=== PATIENT | male | born 1965 | race Two or more races ===

== ENCOUNTER 2017-08-16 23:48 | Emergency (ER) | payer BC, OTHER ==
[2017-08-16] MEDS ORDERED: NS 0.9% 1000 ML* 2,000 ML IV ONE (23:58)
[2017-08-17 01:17] LABS: EGFR Non-African American 75.1 (>60)
[2017-08-17] MEDS ORDERED: Potassium Chlor TAB* 20 MEQ TAB.ER PO ONE ×3 (01:23→02:22)
[2017-08-17 01:56] LABS: ABS Basophils 0.1 10^3/ul (0-0.2); ABS Eosinophils 0.1 10^3/ul (0-0.6); ABS Lymphocytes 1.6 10^3/ul (1.0-4.8); ABS Monocytes 0.9 10^3/ul (0-0.8); ABS Neutrophils 7.3 10^3/ul (1.5-7.7); ABS Nucleated RBC 0 10^3/ul; Eosinophil % 1.1 % (0-6); Hematocrit 45 % (42-52); Hemoglobin 15.7 g/dl (14.0-18.0); Lymphocyte % 16.3 % (25-47); Mean Corpuscular HGB Conc 35 g/dl (31-36); Mean Corpuscular Hemoglobin 37 pg (27-31); Mean Corpuscular Volume 106 fL (80-94); Mean Platelet Volume 9 um3 (7.4-10.4); Nucleated Red Blood Cells % 0.2; Platelet Count 203 10^3/ul (150-450); Red Blood Count 4.24 10^6/ul (4.0-5.4); Red Cell Distribution Width 14 % (10.5-15)
[2017-08-17 02:00] LABS: INR 0.95 (0.77-1.02)
[2017-08-17 04:36] VITALS: BP 118/73
--- NOTE | 2017-08-17 06:37 | ED ---
Torey Muñoz Thomas, scribed for Darren Degroot on 08/17/17 at 0001 . Complex/Multi-Sys Presentation - HPI Summary HPI Summary: The patient is a 51 year old male brought in by ambulance after he was drinking at the bar and fell, possibly hitting his head. Per EMS, after this fall the patient was unresponsive and had agonal breathing. In the emergency room, the patient is alert and confused. The patient admits to drinking alcohol tonight. When asked what happened at the bar, the patient does not remember. He denies chest pain, head pain, neck pain, abdominal pain, any other pain, or extremity weakness. - History Of Current Complaint Hx Obtained From: Patient, EMS Onset/Duration: Resolved Timing: Intermittent, Lasting: Severity Currently: None Severity Initially: Moderate Alleviating Factor(s): Spontaneous resolution Associated Signs And Symptoms: Negative: Other - CP, head pain, abd pain, neck pain, extremity weakness - Allergies/Home Medications Allergies/Adverse Reactions: Allergies Allergy/AdvReac Type Severity Reaction Status Date / Time No Known Allergies Allergy Verified 08/17/17 00:04 PMH/Surg Hx/FS Hx/Imm Hx Endocrine/Hematology History: Denies: Hx Diabetes Cardiovascular History: Denies: Hx Congenital Heart Disease - Family History Known Family History: Positive: Other - Patient denies relevant FHx - Social History Alcohol Use: Daily Hx Substance Use: No Substance Use Type: Reports: None Hx Tobacco Use: No Smoking Status (MU): Never Smoked Tobacco Review of Systems Negative: Chest Pain Negative: Abdominal Pain Negative: Other - neck pain Neurological: Negative - head pain Negative: Weakness - extremity All Other Systems Reviewed And Are Negative: Yes Physical Exam - Summary Physical Exam Summary: Appearance: Well appearing, no pain distress Skin: warm, dry, reflects adequate perfusion Head/face: normal Eyes: EOMI, MICKI ENT: normal Neck: supple, non-tender Respiratory: CTA, breath sounds present Cardiovascular: Tachycardia. Regular rhythm. Pulses symmetrical Abdomen: non-tender, soft Bowel: present Musculoskeletal: normal, strength/ROM intact Neuro: sensory motor intact. Alert but confused. Triage Information Reviewed: Yes Vital Signs On Initial Exam: Initial Vitals Temp Pulse Resp BP Pulse Ox 97.8 F 75 16 114/60 96 08/16/17 23:59 08/16/17 23:59 08/16/17 23:59 08/16/17 23:59 08/16/17 23:59 Vital Signs Reviewed: Yes Diagnostics - Vital Signs Vital Signs Temp Pulse Resp BP Pulse Ox 08/17/17 05:58 61 16 118/73 96 08/17/17 04:36 67 18 118/73 96 08/17/17 03:07 16 104/61 95 08/17/17 01:00 71 16 114/60 96 08/16/17 23:59 97.8 F 75 16 114/60 96 - Laboratory Lab Results: Lab Results 08/17/17 08/17/17 08/17/17 Range/Units 00:30 00:30 00:30 WBC 10.0 (3.5-10.8) 10^3/ul RBC 4.24 (4.0-5.4) 10^6/ul Hgb 15.7 (14.0-18.0) g/dl Hct 45 (42-52) % MCV 106 H (80-94) fL MCH 37 H (27-31) pg MCHC 35 (31-36) g/dl RDW 14 (10.5-15) % Plt Count 203 (150-450) 10^3/ul MPV 9 (7.4-10.4) um3 Neut % (Auto) 73.2 (38-83) % Lymph % (Auto) 16.3 L (25-47) % Stonewall % (Auto) 8.7 (1-9) % Eos % (Auto) 1.1 (0-6) % Baso % (Auto) 0.7 (0-2) % Absolute Neuts (auto) 7.3 (1.5-7.7) 10^3/ul Absolute Lymphs (auto) 1.6 (1.0-4.8) 10^3/ul Absolute Monos (auto) 0.9 H (0-0.8) 10^3/ul Absolute Eos (auto) 0.1 (0-0.6) 10^3/ul Absolute Basos (auto) 0.1 (0-0.2) 10^3/ul Absolute Nucleated RBC 0 10^3/ul Nucleated RBC % 0.2 Polychromasia 1+ Macrocytosis 1+ INR (Anticoag Therapy) 0.95 (0.77-1.02) APTT 34.8 (26.0-36.3) seconds Sodium 134 (133-145) mmol/L Potassium 2.7 L* (3.5-5.0) mmol/L Chloride 94 L (101-111) mmol/L Carbon Dioxide 28 (22-32) mmol/L Anion Gap 12 H (2-11) mmol/L BUN 7 (6-24) mg/dL Creatinine 1.05 (0.67-1.17) mg/dL Est GFR ( Amer) 96.5 (>60) Est GFR (Non-Af Amer) 75.1 (>60) BUN/Creatinine Ratio 6.7 L (8-20) Glucose 103 H (70-100) mg/dL Calcium 8.3 L (8.6-10.3) mg/dL Total Bilirubin 0.70 (0.2-1.0) mg/dL AST 124 H (13-39) U/L ALT 99 H (7-52) U/L Alkaline Phosphatase 67 (34-104) U/L Troponin I 0.01 (<0.04) ng/mL Total Protein 7.1 (6.4-8.9) g/dL Albumin 3.3 (3.2-5.2) g/dL Globulin 3.8 (2-4) g/dL Albumin/Globulin Ratio 0.9 L (1-3) Lipase 40 (11.0-82.0) U/L Salicylates < 2.50 (<30) mg/dL Acetaminophen < 15 mcg/mL Serum Alcohol 193 H (<10) mg/dL 08/17/17 Range/Units 05:52 WBC (3.5-10.8) 10^3/ul RBC (4.0-5.4) 10^6/ul Hgb (14.0-18.0) g/dl Hct (42-52) % MCV (80-94) fL MCH (27-31) pg MCHC (31-36) g/dl RDW (10.5-15) % Plt Count (150-450) 10^3/ul MPV (7.4-10.4) um3 Neut % (Auto) (38-83) % Lymph % (Auto) (25-47) % Stonewall % (Auto) (1-9) % Eos % (Auto) (0-6) % Baso % (Auto) (0-2) % Absolute Neuts (auto) (1.5-7.7) 10^3/ul Absolute Lymphs (auto) (1.0-4.8) 10^3/ul Absolute Monos (auto) (0-0.8) 10^3/ul Absolute Eos (auto) (0-0.6) 10^3/ul Absolute Basos (auto) (0-0.2) 10^3/ul Absolute Nucleated RBC 10^3/ul Nucleated RBC % Polychromasia Macrocytosis INR (Anticoag Therapy) (0.77-1.02) APTT (26.0-36.3) seconds Sodium (133-145) mmol/L Potassium 3.8 (3.5-5.0) mmol/L Chloride (101-111) mmol/L Carbon Dioxide (22-32) mmol/L Anion Gap (2-11) mmol/L BUN (6-24) mg/dL Creatinine (0.67-1.17) mg/dL Est GFR ( Amer) (>60) Est GFR (Non-Af Amer) (>60) BUN/Creatinine Ratio (8-20) Glucose (70-100) mg/dL Calcium (8.6-10.3) mg/dL Total Bilirubin (0.2-1.0) mg/dL AST (13-39) U/L ALT (7-52) U/L Alkaline Phosphatase (34-104) U/L Troponin I (<0.04) ng/mL Total Protein (6.4-8.9) g/dL Albumin (3.2-5.2) g/dL Globulin (2-4) g/dL Albumin/Globulin Ratio (1-3) Lipase (11.0-82.0) U/L Salicylates (<30) mg/dL Acetaminophen mcg/mL Serum Alcohol (<10) mg/dL Result Diagrams: 08/17/17 00:30 08/17/17 05:52 Lab Statement: Any lab studies that have been ordered have been reviewed, and results considered in the medical decision making process. Re-Evaluation - Re-Evaluation First Eval Re-Evaluation Time: 00:43 Change: Unchanged Comment: The patient refused a CXR and a CT of the head and neck. He is alert and oriented at this time. He knows what he is doing. Complex Multi-Symp Course/Dx Assessment/Plan: The patient is a 51 year old male brought in by ambulance after he was drinking at the bar and fell, possibly hitting his head. In the emergency room, the patient is alert and confused. In the ED course the patient was given IV fluids and potassium chloride. Bloodwork and urinalysis were obtained. EKG was obtained. THE PATIENT REFUSED CXR, CT BRAIN, AND CT C-SPINE. THE PATIENT IS OF SOUND MIND. HE KNOWS AND UNDERSTANDS WHAT HE IS DOING. The patient is diagnosed with hypokalemia and alcohol intoxication. The patient is instructed to follow up with primary care. - Diagnoses Differential Diagnoses/HQI/PQRI: Metabolic Abnormality, Other - alcoholic intox/ head injury Provider Diagnoses: Hypokalemia, Alcohol intoxication Discharge - Discharge Plan Condition: Stable Disposition: HOME Patient Education Materials: Hypokalemia (ED), Alcohol Intoxication (ED) Referrals: [facility]ERR[facility] [Outside] Additional Instructions: Follow up with your primary care physician in three days. If you do not have one , you can call the [facility] physician referral service to find one and make an appointment. Return to the emergency department for any new or worsening symptoms. The documentation as recorded by the Torey calero Thomas accurately reflects the service I personally performed and the decisions made by , Darren Degroot.
== END 2017-08-17 06:56 | disposition home or self-care (01) ==
LOC: ED 23:48
DX: E87.6 Hypokalemia (principal); F10.129 Alcohol abuse with intoxication, unspecified; Y90.6 Blood alcohol level of 120-199 mg/100 ml; R00.0 Tachycardia, unspecified; R41.82 Altered mental status, unspecified
CPT/HCPCS: 36415; 80053; 80320; 80329; 83690; 84132; 84484; 85025; 85610; 85730; 93005; 99283; A9270-GY; G0480

== ENCOUNTER 2019-01-01 19:57 | Emergency (ER) | payer OTHER ==
[2019-01-01] MEDS ORDERED: Pantoprazole IV* 40 MG IV ONE ×2 (20:30→21:25)
[2019-01-01] MEDS ORDERED: Albuterol/Ipratropium NEB.SOL* Albuterol 2.5 MG/Ipratropium 0.5 MG 3 ML INH ONE (20:32)
[2019-01-01] MEDS ORDERED: Iodixanol* (CONTRAST) 320 MG/ML 100 ML SDV IV ONE (20:49)
--- NOTE | 2019-01-01 20:59 | ED ---
Complex/Multi-Sys Presentation - HPI Summary HPI Summary: Patient is a 53 y/o M presenting to ED with complaints of abdominal pain, constipation, and SOB. Patient reports that abdominal pain has been present for the past five days. He states that he has been constipated as well, but notes that he had a bowel movement at 1830 today. He describes this bowel movement as "okay". However, he states he has been SOB since this bowel movement. Nurse notes that patient was 79 on RA upon arrival. When patient was taken off of o2 in the room, he dropped to 80% o2. He denies back pain. Patient takes folic acid , ASA, metoprolol 50 mg, losartan 100 mg, and lasix 20 mg. PMHx of HTN and borderline diabetes. Patient denies any medications for diabetes. He additionally denies Hx of TX and CHF. On triage, pain is rated 8/10. Nothing is noted to aggravate/alleviate Sx. Home medications and allergies are reviewed. - History Of Current Complaint Chief Complaint: EDAbdPain Time Seen by Provider: 01/01/19 20:16 Hx Obtained From: Patient Onset/Duration: Lasting Hours - SOB since 1830 today, Lasting Days - abdominal pain and constipation for past five days, Still Present Timing: Constant, Hours - SOB since 1830 today, Days - abdominal pain and constipation for past five days Severity Currently: Severe Location: Pain At: - abdomen Aggravating Factor(s): nothing Alleviating Factor(s): nothing Associated Signs And Symptoms: Positive: SOB, Abdominal Pain, Other - constipation. Negative: Back Pain - Allergies/Home Medications Allergies/Adverse Reactions: Allergies Allergy/AdvReac Type Severity Reaction Status Date / Time No Known Allergies Allergy Verified 01/01/19 20:07 PMH/Surg Hx/FS Hx/Imm Hx Endocrine/Hematology History: Denies: Hx Diabetes Cardiovascular History: Reports: Hx Hypertension Denies: Hx Congenital Heart Disease Respiratory History: Reports: Hx Asthma - A CHILD Infectious Disease History: No Infectious Disease History: Denies: Traveled Outside the [place] in Last 30 Days - Family History Known Family History: Negative: Respiratory Disease - Social History Alcohol Use: Daily Hx Substance Use: No Substance Use Type: Reports: None Hx Tobacco Use: No Smoking Status (MU): Never Smoked Tobacco Review of Systems Positive: Shortness Of Breath Gastrointestinal: Other - positive - constipation Positive: Abdominal Pain Musculoskeletal: Other - negative - back pain All Other Systems Reviewed And Are Negative: Yes Physical Exam - Summary Physical Exam Summary: VITAL SIGNS: Reviewed. GENERAL: Patient is a well-developed and nourished male who is lying in the stretcher. Patient seems to have mild to moderate respiratory distress HEAD AND FACE: No signs of trauma. No ecchymosis, hematomas or skull depressions. No sinus tenderness. EYES: PERRLA, EOMI x 2, No injected conjunctiva, no nystagmus. EARS: Hearing grossly intact. Ear canals and tympanic membranes are within normal limits. MOUTH: Oropharynx within normal limits. NECK: Supple, trachea is midline, no adenopathy, no JVD, no carotid bruit, no c- spine tenderness, neck with full ROM CHEST: Symmetric, no tenderness at palpation LUNGS: Tachypneic, decreased breath sounds bilaterally. CVS: Regular rate and rhythm, S1 and S2 present, no murmurs or gallops appreciated. ABDOMEN: Soft, no significant tenderness. Abdomen is distended. No rebound no guarding, and no masses palpated. Bowel sounds are hypoactive. EXTREMITIES: FROM in all major joints, no edema, no cyanosis or clubbing. BLE venous stasis. NEURO: Alert and oriented x 3. No acute neurological deficits. Speech is normal and follows commands. SKIN: Dry and warm Triage Information Reviewed: Yes Vital Signs On Initial Exam: Initial Vitals Temp Pulse Resp BP Pulse Ox 97 F 94 20 96/52 82 01/01/19 20:00 01/01/19 20:00 01/01/19 20:00 01/01/19 20:00 01/01/19 20:00 Vital Signs Reviewed: Yes Procedures - Procedure Summary Procedure Summary: Patient was intubated. He was given 20 mg etomidate and 100 mg succinylcholine. He was intubated at 2113 with 8.0 ET tube, 25 cm at the lip. Co2 detector with good color change. No complications. Right jugular central line placed. - Central Line Right Jugular Triple Lumen Central Venous Catheter Central Line Lumen: triple Central Line Procedure: betadine prep, sterile drapes applied, sterile dressing applied Central Line Position: internal jugular (R) Anesthesia: versed and fentanyl Complications: none Central Line Post Position: sutured, good blood return, position confirmed w/ CXR - Intubation Time of Intubation: 21:13 Intubation Method: orotracheal Tube Size (cm): 8.0 Medications: Succinylcholine - and etomidate Breath Sounds after Intubation: equal Intubation Complications: no complications Post Intubation Xray: Yes Diagnostics - Vital Signs Vital Signs Temp Pulse Resp BP Pulse Ox 01/01/19 20:37 99.9 F 01/01/19 20:21 96 41 103/87 92 01/01/19 20:16 94 79 01/01/19 20:00 97 F 94 20 96/52 82 - Laboratory Lab Results: Lab Results 01/01/19 Range/Units 20:47 Patient Temperature Not Reportable ABG pH Pending ABG pH (Temp Correct) Pending ABG pCO2 Pending ABG pCO2 (Temp Corrct Pending ABG pO2 Pending ABG pO2 (Temp Correct Pending ABG HCO3 Pending ABG O2 Saturation Pending ABG Base Excess Pending Respiration Rate Not Reportable O2 Delivery Device oxymask Ventilator Type Not Reportable Vent Mode Not Reportable FiO2 15 Inspiratory Time Not Reportable PEEP Not Reportable Pressure Support Not Reportable Pressure Control Not Reportable EPAP Not Reportable IPAP Not Reportable BiPAP Not Reportable Result Diagrams: 01/01/19 22:07 01/01/19 22:07 Lab Statement: Any lab studies that have been ordered have been reviewed, and results considered in the medical decision making process. - Radiology CXR Radiology Interpretation Completed By: ED Physician Summary of Radiographic Findings: CXR showed decreased lung volume, no acute infiltrate, pending official report. CXR post procedures Radiology Interpretation Completed By: ED Physician Summary of Radiographic Findings: Post procedure CXR: ET tube at level of clavicle and central line in place, no pneumothorax, tip at distal SVC, pending official report. - CT CTA CHEST/ABD/PEL CT Interpretation Completed By: Radiologist Summary of CT Findings: IMPRESSION: 1. There is [id number] intraperitoneal free air as well as loculated air. and fluid collections in the peritoneum of the abdomen and pelvis suspicious. for possible bowel perforation. 2. There are mildly dilated small bowel loops with air-fluid levels, possible. focal ileus versus a degree of small bowel obstruction. 3. No aortic dissection. THIS REPORT WAS REVIEWED BY DR. GALLOWAY. - EKG 2027 Cardiac Rate: NL - rate of 99 BPM EKG Rhythm: Sinus Rhythm Summary of EKG Findings: EKG showed sinus rhythm with rate of 99 BPM, normal axis, normal intervals, no acute changes. Re-Evaluation - Re-Evaluation First Eval Re-Evaluation Time: 21:00 Comment: When patient had returned from CT, patient was diaphoretic and tachpneic, he will be intubated. 2110 - 20 mg etomidate and 100 mg succinylcholine was given, intubated at 2112. Second Eval Re-Evaluation Time: 21:21 Comment: 18 FR OG placed to suction, 700 ml of dark red output. Third Eval Re-Evaluation Time: 21:36 Comment: Bolus of 100 mcg fentanyl and 5 mg versed given for sedation. Central line placed. Fourth Eval Re-Evaluation Time: 22:10 Comment: PRBCS of O- started. Fifth Eval Re-Evaluation Time: 22:20 Comment: Patient's friend, John, is in the room, he will attempt to contact next of kin of patient. Sixth + Eval Re-Evaluation Time: 22:30 Comment: Blood infusion stooped, NS, 3rd liter infusing. Temperature sensing trujillo placed 16 FR, no urine output at this time. Complex Multi-Symp Course/Dx Course Of Treatment: Patient is a 53 y/o M presenting to ED with complaints of abdominal pain, constipation, and SOB. Patient reports that abdominal pain has been present for the past five days. He states that he has been constipated as well, but notes that he had a bowel movement at 1830 today. He describes this bowel movement as "okay". However, he states he has been SOB since this bowel movement. Nurse notes that patient was 79 on RA upon arrival. When patient was taken off of o2 in the room, he dropped to 80% o2. He denies back pain. Patient takes folic acid, ASA, metoprolol 50 mg, losartan 100 mg, and lasix 20 mg. PMHx of HTN and borderline diabetes. Patient denies any medications for diabetes. He additionally denies Hx of TX and CHF. On physical exam, mild to moderate respiratory distress, tachypneic, diaphoretic, decreased breath sounds bilaterally, abdomen is distended, hypoactive bowel sounds, no significant abdominal tenderness, BLE venous stasis. ABG showed pH 7.38, pCO2 37, pO2 67, HCO3 22.6, base excess -2.8. Patient received respiratory therapy; he was given duoneb, 1 neb, and albuterol 2.5 mg INH, one dose. CXR showed decreased lung volume, no acute infiltrate. EKG showed sinus rhythm with rate of 99 BPM, normal axis, normal intervals, no acute changes. 2104 - Dr. Prieto, who is familiar with the patient, called ED, patient's case was discussed. When the patient returned from CT, he was more diaphoretic and tachypneic. As a result, patient was intubated. He was given 20 mg etomidate and 100 mg succinylcholine. He was intubated at 2112 with 8.0 ET tube, 25 cm at the lip. Co2 detector with good color change. No complications. 18 FR OG placed to suction, 700 ml of dark red output. Bolus of 100 mcg fentanyl and 5 mg versed given for sedation. Right jugular triple lumen central venous catheter placed, no complications, sutured, good blood return. Bloodwork obtained from central line. Patient recieved fluids, protonix, and zosyn. Post procedure CXR: ET tube at level of clavicle and central line in place, no pneumothorax, tip at distal SVC. 2141 - Patient's case was discussed with Dr. Gerber, Dr. Gerber asks that labs be obtained for the patient. CTA CHEST/ABD/PEL IMPRESSION: 1. There is mild-to- moderate intraperitoneal free air as well as loculated air. and fluid collections in the peritoneum of the abdomen and pelvis suspicious. for possible bowel perforation. 2. There are mildly dilated small bowel loops with air-fluid levels, possible. focal ileus versus a degree of small bowel obstruction. 3. No aortic dissection. 2206 - Dr. Pfeiffer was contacted about the patient's case, he states to attempt to contact next of kin and he will come to ED to evaluate the patient. PRBCS of O- started. 2219 - Dr. Pfeiffer in ED to evaluate patient. Blood infusion stooped, NS, 3rd liter infusing. Temperature sensing trujillo placed 16 FR, no urine output at this time. Patient has perforated viscous, most likely gastric ulcer. 9 - Dr. Pfeiffer states that after evaluating the patient, the patient should be transferred due to the patient's complicated nature. Transfer will be handled by Dr. Pfeiffer. Labs showed WBC 11.9, MCV 110, MCH 38, immature gran% 49, band neutrophils% 36, metamyelocytes% 9, myelocytes% 4, sodium 127, chloride 88, anion gap 15, BUN 140 , creatinine 7.47, lactic acid 3.1, magnesium 4.5, total bilirubin 2.3, AST 47, trop 0.03, CRP 324.13, albumin 2.6, albumin/globulin ratio 0.7, amylase 26, lipase 86. Serum alc < 10. Blood type A+. 2356 - Dr. Pfeiffer reports that he spoke with Dr. Soheila Rudolph from [facility], Dr. Rudolph accepts patient for transfer to SICU. Patient will be transferred ACLS. Patient is intubated, sedated on fentanyl and versed, and is on levophed. - Diagnoses Provider Diagnoses: Perforated viscus, Respiratory distress, Peritonitis, Sepsis - Physician Notifications Discussed Care Of Patient With: Stephen Prieto Time Discussed With Above Provider: 21:05 Instructed by Provider To: Other - 2104 - Dr. Prieto is familiar with the patient, patient's case was discussed. 2141 - Patient's case was discussed with Dr. Gerber, 2206 - Dr. Pfeiffer was contacted about the patient's case, he states to attempt to contact next of kin and he will come to ED to evaluate the patient. 2010 - Patient's case was discussed with Dr. Jean, Dr. Jean will consult on patient's case 2219 - Dr. Pfeiffer in ED to evaluate patient. 2248 - Dr. Pfeiffer states that after evaluating the patient, he will have the patient transferred. This will be handled by Dr. Pfeiffer. 2355 - Dr. Pfeiffer reports that he spoke with Dr. Soheila Rudolph from [facility], Dr. Rudolph accepts patient for transfer to SICU. Patient will be transferred ACLS. Patient is intubated, sedated on fentanyl and versed, and is on levophed. - Critical Care Time Critical Care Time: 75-104 min Discharge - Sign-Out/Discharge Documenting (check all that apply): Patient Departure - transfer - Discharge Plan Condition: Guarded Disposition: TRANS HIGHER LVL OF CARE FAC Referrals: No Primary Care Phys,NOPCP [Primary Care Provider] - - Billing Disposition and Condition Condition: GUARDED Disposition: Trans Higher Lvl of Care Fac - Attestation Statements Document Initiated by Caroline: Yes Documenting Scribe: MARGARITA FERNANDEZ Provider For Whom Caroline is Documenting (Include Credential): DAMION GALLOWAY MD Scribyvette Attestation: MARGARITA Muñoz, scribed for DAMION GALLOWAY MD on 01/02/19 at 0036. Scribe Documentation Reviewed: Yes Provider Attestation: The documentation as recorded by the MARGARITA calero accurately reflects the service I personally performed and the decisions made by me, DAMION GALLOWAY MD Status of Scribe Document: Viewed
[2019-01-01] MEDS ORDERED: Albuterol 2.5 MG/3 ML NEB.SOL* (0.083%) INH SCH (21:00)
[2019-01-01] MEDS ORDERED: Albuterol 2.5 MG/3 ML NEB.SOL* (0.083%) INH ONE (21:03)
[2019-01-01] MEDS ORDERED: fentaNYL* 50 MCG/ML 2 ML VIAL (100 MCG VIAL) ONE (21:26)
[2019-01-01] MEDS ORDERED: Midazolam* 1 MG/ML 5 ML VIAL (5 MG) ONE (21:26)
[2019-01-01] MEDS ORDERED: Piperacillin/Tazobac (*) 3.375 GM BAG ONE (21:57)
[2019-01-01] MEDS ORDERED: Midazolam IV for DRIP* 100 MG in NS 0.9% 100 ML* 80 ML IV SCH (22:00)
[2019-01-01] MEDS ORDERED: Pantoprazole* 80 mg IN NS 80 MG/250 ML BAG IV SCH (22:00)
[2019-01-01] MEDS ORDERED: fentaNYL INFUSION 50 MCG/ML* 2,500 MCG/50 ML BAG IV SCH (22:00)
[2019-01-01 22:25] LABS: Hematocrit 48 % (42-52); Hemoglobin 16.5 g/dL (14.0-18.0); Mean Corpuscular HGB Conc 34 g/dL (31-36); Mean Corpuscular Hemoglobin 38 pg (27-31); Mean Corpuscular Volume 110 fL (80-94); Red Blood Count 4.39 10^6 /uL (4.18-5.48); Red Cell Distribution Width 15 % (10-15); White Blood Count 11.9 10^3/uL (3.5-10.8)
[2019-01-01 22:27] LABS: INR 1.06 (0.82-1.09)
[2019-01-01 22:35] LABS: ALT 42 U/L (7-52); Albumin 2.6 g/dL (3.2-5.2); Albumin/Globulin Ratio 0.7 (1-3); Alkaline Phosphatase 82 U/L (34-104); Amylase 26 U/L (29-103); C Reactive Protein 324.13 mg/L (<8.01); CO2 Carbon Dioxide 24 mmol/L (22-32); Calcium 9.2 mg/dL (8.6-10.3); Chloride 88 mmol/L (101-111); EGFR African American 9.4 (>60); EGFR Non-African American 7.7 (>60); Globulin 3.9 g/dL (2-4); Glucose 87 mg/dL (70-100); Magnesium 4.5 mg/dL (1.9-2.7); Sodium 127 mmol/L (135-145); Total Protein 6.5 g/dL (6.4-8.9)
[2019-01-01 22:37] LABS: Troponin I 0.03 ng/mL (<0.04)
[2019-01-01] MEDS: NS 0.9% 1000 ML** 1,000 ML IV ONE ×2 (22:48→22:51)
[2019-01-01 22:50] LABS: Platelet Morphology Large
[2019-01-01 22:52] LABS: Alcohol < 10 mg/dL (<10)
[2019-01-01 22:55] LABS: AST 47 U/L (13-39); Anion Gap 15 mmol/L (2-11); Potassium 4.3 mmol/L (3.5-5.0)
[2019-01-01 22:56] LABS: Platelet Count 191 10^3/uL (150-450)
[2019-01-01] MEDS ORDERED: Midazolam* 1 MG/ML 10 ML VIAL (10 MG) IV SLOW PU ONE (22:58)
[2019-01-01] MEDS ORDERED: fentaNYL* 50 MCG/ML 2 ML VIAL (100 MCG VIAL) IV SLOW PU ONE (22:58)
[2019-01-01] MEDS ORDERED: Piperacillin/Tazobac ADVAN(*) 3.375 GM in NS 0.9% 100 ML* 100 ML IVPB ONE (22:58)
[2019-01-01 23:00] LABS: BUN/Creatinine Ratio 18.7 (8-20); Blood Urea Nitrogen 140 mg/dL (6-24)
[2019-01-01] MEDS ORDERED: Norepinephrine 16MCG/ML IVPRE* 4,000 MCG/250 ML BAG IV SCH (23:45)
[2019-01-01] MEDS ORDERED: Norepinephrine 16MCG/ML IVPRE* 4,000 MCG/250 ML BAG IV ONE (23:54)
--- NOTE | 2019-01-02 01:09 | CONS ---
[facility]: [facility]; Primary Care Doctor * SURGICAL CONSULTATION REPORT: DATE OF CONSULT: The patient was seen in the emergency room on 01/01/19. HISTORY OF PRESENT ILLNESS: I was contacted by the ER staff for Mr. Bolaños, a 53- year-old gentleman, who presented to the emergency room with friend with complaints of constipation since Tuesday of last week that converted into a severe abdominal pain after bowel movement. The patient is morbidly obese and showed signs of respiratory distress. He underwent an ABG as well as a CT scan of the chest, abdomen, and pelvis with the ER staff, which was notable for intraabdominal free air and fluid. Air was noted in the diaphragm and other parts and my services was consulted. Labs have still not been drawn. By the time I was able to see the patient, he was intubated for respiratory distress. Prior to evaluating him, chart was reviewed and I discussed the case with a friend. According to this friend, he was contacted by a mutual friend in [place]. When the patient, Wolfgang, contacted the [place] friend stating that he has not been feeling well for a few days, that led to a local friend going to his apartment and locating him and bringing him to the emergency room. Other than that the local friend does not know much and had not seen him for a few weeks. The patient upon my first visit with him was intubated, OG tube has been placed , and approximately 800 cc of brownish fluid output is appreciated. The patient is opening his eyes. He received fentanyl and Versed, but does nod his head at times with some of the questions. He does state that he does have abdominal pain, it is unclear for how long, other than the chart where it states that he had it close to a week. PAST MEDICAL HISTORY: Alcohol use, asthma; otherwise unknown. PAST SURGICAL HISTORY: No abdominal surgical history according to patient as these were a few of my questions that I was able to obtain. MEDICATIONS: The patient is on no home medications as far as we know, although a CT scan does appreciate having a pill in the distal stomach. ALLERGIES: He has no known drug allergies. SOCIAL HISTORY: The patient is possibly . He has 2 children. 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 REVIEW OF SYSTEMS: Unable to obtain. PHYSICAL EXAM: The patient's temperature is 99, heart rate in the 80s, blood pressure on arrival systolic in 70s and remained somewhat low in the 90s systolic, now on sedation. He is on 100% FiO2. He is diaphoretic. His abdomen is soft, obese. The patient grimaces on examination of the upper abdomen, somewhat firm at the left lower quadrant only. No abdominal scars, no hernias noted. Torres catheter in place and no urine is drained. DIAGNOSTIC STUDIES/LAB DATA: Labs have started to come in, which show white count of 11.9 with a left shift with multiple bands of 36. Chemistry panel shows an elevated creatinine of 7.47 with the sodium of 127, elevated lactate at 3.1, bilirubin of 2.3, and CRP of 324. Troponin negative. Lipase mildly elevated at 86 and an albumin of 2.6. CT scan described as above. ASSESSMENT AND PLAN: A 53-year-old gentleman with body mass index of 46, alcohol use, who presents to the emergency room with a worsening 6-day history of lower abdominal pain, constipation, who now shows signs of respiratory failure, acute renal failure, and abdominal sepsis secondary to likely perforated bowel, although this is unclear if this is upper GI or lower. I favor a lower GI. Differential diagnosis does include perforated peptic ulcers. CAT scan does not show any diverticular disease, though I believe this is the most likely. Given his presentation, I feel the patient would be better served at a tertiary center with Surgical ICU and overnight Nephrology. For this reason, I have recommended to the ER staff the patient to be transferred to a tertiary center for additional care. I believe, he will require exploratory laparotomy, although the patient is acutely ill and warrants aggressive resuscitation that I feel a Surgical ICU is necessary at this time for this gentleman. A call has been put out to the transfer center for this purpose. I do not have any family members with him to discuss this to. I believe this is the safest route for Mr. Bolaños and we will go on this route at this time. He will be resuscitated with fluids while here and we will look towards a prompt transfer. [id number] #: [id number] [facility]
[2019-01-02 01:31] VITALS: BP 89/52
[2019-01-02] MEDS ORDERED: Norepinephrine 16MCG/ML IVPRE* 4,000 MCG/250 ML BAG IV ONE (01:50)
--- NOTE | 2019-01-02 20:14 | PN ---
Progress Note - Progress Note Date of Service: 01/02/19 Note: blood culture positive for gram cocci. patient was transferred to [facility] so faxed info to [facility]
== END 2019-01-02 01:11 | disposition short-term general hospital (02) ==
LOC: ED 19:57
DX: K63.1 Perforation of intestine (nontraumatic) (principal); R06.03 Acute respiratory distress; K65.9 Peritonitis, unspecified; A41.89 Other specified sepsis; R06.02 Shortness of breath; R10.9 Unspecified abdominal pain; K59.00 Constipation, unspecified; I10 Essential (primary) hypertension
CPT/HCPCS: 31500; 36415; 36430; 36569; 71045; 71275; 74174; 80053; 80320; 82150; 82803; 83605; 83690; 83735; 83880; 84484; 85025; 85060; 85610; 85730; 86140; 86850; 86900; 86901; 86922; 87040; 87077; 87150; 87186; 87205; 93005; 96365; 96375; 99285; A9270-GY; G0480; J2250; J2543; J3010; P9040; Q9967